=== PATIENT | male | born 1965 | race Caucasian/White ===

== ENCOUNTER 2018-11-08 06:00 | Day surgery (SDC) | payer MEDICAID ==
[2018-11-04 14:16] LABS: BASOPHILS # (AUTO) 0.1 X10'3 (0-0.2); EOSINOPHILS # (AUTO) 0.1 X10'3 (0-0.9); EOSINOPHILS % (AUTO) 0.8 % (0-6); LYMPHOCYTES # (AUTO) 2.1 X10'3 (1.1-4.8); LYMPHOCYTES % (AUTO) 25.4 % (21-51); MEAN CORPUSCULAR HEMOGLOBIN 30.9 PG (27.0-31.0); MEAN CORPUSCULAR HGB CONC 34.7 g/dL (33.0-36.5); MEAN PLATELET VOLUME 7.1 FL (7.4-10.4); MONOCYTES # (AUTO) 0.4 X10'3 (0-0.9); MONOCYTES % (AUTO) 4.4 % (2-12); NEUTROPHILS # (AUTO) 5.7 X10'3 (1.8-7.7); NEUTROPHILS % (AUTO) 68.4 % (42-75); PRE OP HEMATOCRIT 50.6 % (42.0-52.0); PRE OP HEMOGLOBIN 17.5 g/dL (14.0-17.9); PRE OP PLATELET COUNT 255 X10'3 (140-440); RED BLOOD COUNT 5.69 X10'6 (4.70-6.10); RED CELL DISTRIBUTION WIDTH 13.5 % (11.5-14.5)
[2018-11-04 14:34] LABS: ALBUMIN 3.6 G/DL (3.4-5.0); ALBUMIN/GLOBULIN RATIO 0.9 (1.1-1.5); ALKALINE PHOSPHATASE 87 IU/L (46-116); BLOOD UREA NITROGEN 12 MG/DL (7-18); BUN/CREATININE RATIO 13.6 (5.4-32.0); CALCIUM 9.1 MG/DL (8.5-10.1); CHLORIDE 107 MMOL/L (99-107); CREATININE 0.88 MG/DL (0.60-1.10); PRE OP ALT 34 U/L (30-65); PRE OP ANION GAP 9 (8-16); PRE OP AST 17 U/L (10-37); PRE OP BILIRUB, TOTAL 0.4 MG/DL (0.0-1.0); PRE OP GLUCOSE 96 MG/DL (70-104); PRE OP POTASSIUM 3.9 MMOL/L (3.4-5.1); PRE OP SODIUM 139 MMOL/L (135-145); TOTAL CARBON DIOXIDE 22.7 MMOL/L (24-32); TOTAL PROTEIN 7.6 G/DL (6.4-8.2); eGFR 90 ML/MIN
[~2018-11-08] VITALS: Ht 180.3 cm; Wt 87.1 kg
[~2018-11-08 06:00] MED LIST: AMIT-189 PO; CYCL-145 PO; ceFAZolin 2gm in dextrose, iso 100 ML IV ONE; famotidine 20mg tablet PO ONE; ringers solution, lacted 1,000 ML IV SCH
[2018-11-08 07:00] VITALS: BP 137/95
[2018-11-08] MEDS ORDERED: BUPIVAcaine/PF 2.5mg/ml (0.25%) 10ml vial ONE ×2 (07:43→08:14)
[2018-11-08] MEDS ORDERED: ondansetron/PF 4mg/2ml inj IV PRN (07:50)
[2018-11-08] MEDS ORDERED: meperidine/PF 25mg/ml syringe IV PRN ×3 (07:50)
[2018-11-08] MEDS ORDERED: ringers solution, lacted 1,000 ML IV SCH (07:50)
[2018-11-08] MEDS ORDERED: proCHLORperazine 10 MG/2 ml inj IV PRN (07:50)
[2018-11-08] MEDS ORDERED: LIDOcaine 0.5% (5mg/ml) 50ml vial ONE (08:12)
[2018-11-08] MEDS ORDERED: fentaNYL/PF 50MCG/1 ML 2ML syringe ONE (08:15)
[2018-11-08] MEDS ORDERED: midazolam 2 mg/2 ml injection ONE (08:15)
[2018-11-08 08:40] VITALS: BP 121/84
--- NOTE | 2018-11-08 08:40 | NUR ---
Received from OR via [facility], accompanied by Anesthesiologist DYLAN and report given by Anesthesiolgist. PT AWAKE AND ALERT, OXYGENATING WELL ON ROOM AIR. NO RESP DISTRESS NOTED. BULKY DSG TO LHAND/WRIST, CDI. NO PAIN, HAD KIRK BLOCK. L FINGERS TINGLY, ABLE TO WIGGLE THEM. CMS CHECK WNL. VSS.
[2018-11-08 08:51] VITALS: BP 127/91
[2018-11-08 09:00] VITALS: BP 138/88
--- NOTE | 2018-11-08 09:15 | NUR ---
NO PAIN, TOLERATING PO FLUIDS WELL. VSS. DC INSTRUCTIONS EXPLAINED TO PT AND HIS , NANCY VERBALIZED UNDERSTANDING. ICE BAG PROVIDED FOR PT, DCD IN STABLE CONDITION. TAKEN TO CAR VIA WC.
== END 2018-11-08 09:15 | disposition home or self-care (01) ==
LOC: PAS 06:00
PROVIDERS: ATTEND Orthopaedic Surgery Hand Surgery
DX: M67.432 Ganglion, left wrist (principal); F17.200 Nicotine dependence, unspecified, uncomplicated; G43.909 Migraine, unspecified, not intractable, without status migrainosus; Z88.6 Allergy status to analgesic agent; Z79.899 Other long term (current) drug therapy
CPT/HCPCS: 25111; 36415; 80053; 82948; 85025; 93005; A6222; A6449; J0690; J2001; J2250; J3010; J3490; J7120

== ENCOUNTER 2020-01-03 21:59 | Emergency (ER) | payer MEDICAID ==
[~2020-01-03] VITALS: Ht 180.3 cm; Wt 88.6 kg
[~2020-01-03 21:59] MED LIST changes: -ceFAZolin 2gm in dextrose, iso 100 ML IV ONE; -famotidine 20mg tablet PO ONE; -ringers solution, lacted 1,000 ML IV SCH
[2020-01-03] MEDS ORDERED: ketorolac trometh. 30mg/ml inj. IV ONE (22:25)
[2020-01-03] MEDS ORDERED: ondansetron/PF 4mg/2ml inj IV ONE (22:25)
[2020-01-03] MEDS ORDERED: fentaNYL/PF 50MCG/1 ML 2ML syringe IV ONE ×2 (23:00→23:55)
[2020-01-03 23:01] LABS: BASOPHILS # (AUTO) 0.1 X10'3 (0-0.2); BASOPHILS % (AUTO) 0.5 % (0-1); EOSINOPHILS # (AUTO) 0.1 X10'3 (0-0.9); EOSINOPHILS % (AUTO) 0.6 % (0-6); HEMATOCRIT 48.7 % (42.0-52.0); HEMOGLOBIN 16.5 g/dl (14.0-17.9); MEAN CORPUSCULAR HEMOGLOBIN 30.5 PG (27.0-31.0); MEAN CORPUSCULAR HGB CONC 33.9 g/dL (33.0-36.5); MEAN CORPUSCULAR VOLUME 89.9 FL (78-98); MEAN PLATELET VOLUME 7.7 FL (7.4-10.4); MONOCYTES # (AUTO) 0.7 X10'3 (0-0.9); MONOCYTES % (AUTO) 5.3 % (2-12); NEUTROPHILS # (AUTO) 10.6 X10'3 (1.8-7.7); NEUTROPHILS % (AUTO) 78.6 % (42-75); PLATELET COUNT 273 X10'3 (140-440); RED BLOOD COUNT 5.41 X10'6 (4.70-6.10); RED CELL DISTRIBUTION WIDTH 13.6 % (11.5-14.5); WHITE BLOOD COUNT 13.4 X10'3 (4.5-11.0)
[2020-01-03 23:15] LABS: ALANINE AMINOTRANSFERASE 54 U/L (12-78); ALKALINE PHOSPHATASE 93 IU/L (46-116); ANION GAP 11 (8-16); ASPARTATE AMINO TRANSFERASE 38 U/L (10-37); BILIRUBIN,TOTAL 0.5 MG/DL (0.1-1.0); BLOOD UREA NITROGEN 12 MG/DL (7-18); BUN/CREATININE RATIO 9.9 (5.4-32.0); CALCIUM 9.5 MG/DL (8.5-10.1); CHLORIDE 107 MMOL/L (99-107); CREATININE 1.21 MG/DL (0.60-1.10); GLUCOSE 142 MG/DL (70-104); LIPASE 236 U/L (73-393); POTASSIUM 3.1 MMOL/L (3.5-5.1); SODIUM 144 MMOL/L (135-145); TOTAL CARBON DIOXIDE 26.2 MMOL/L (24-32); TOTAL PROTEIN 7.9 G/DL (6.4-8.2); eGFR 62 ML/MIN
[2020-01-03 23:42] LABS: COLOR,URINE AMBER (Yellow); GLUCOSE, URINE NEGATIVE (Neg); KETONES,URINE TRACE mg/dl (Neg); LEUKOCYTE ESTERASE ,URINE NEGATIVE (Neg); NITRITES, URINE NEGATIVE (Neg); OCCULT BLOOD,URINE LARGE (Neg); PH,URINE 5.5 (4.8-8.0); PROTEIN,URINE TRACE mg/dl (Neg)
[2020-01-03 23:43] LABS: CLARITY,URINE SLIGHTLY CLOUDY (Clear); UA COLLECTION TYPE CLN CATCH MIDSTREAM
[2020-01-03] MEDS ORDERED: HYDROcodone/acetaminophen 5mg/325mg tablet PO ONE (23:55)
[2020-01-03] MEDS ORDERED: acetaminophen 325mg tablet PO ONE (23:55)
[2020-01-03 23:58] LABS: BACTERIA,URINE NONE SEEN /HPF (Neg); MUCUS STRANDS MODERATE /LPF (Neg); SQUAMOUS EPITHELIAL CELL,UR FEW /LPF (FEW); WBC,URINE 0-4 /HPF (0-4)
[2020-01-03 23:59] LABS: CAL OXALATE CRYSTALS 3+ /HPF (NEGATIVE)
[2020-01-04] MEDS ORDERED: HYDR-3965 PO (00:50)
[2020-01-04] MEDS ORDERED: ONDA8TAB6 PO (00:50)
[2020-01-04 01:05] VITALS: BP 122/88
== END 2020-01-04 01:00 | disposition home or self-care (01) ==
LOC: ER 22:00
DX: N20.0 Calculus of kidney (principal); R11.2 Nausea with vomiting, unspecified; Z88.5 Allergy status to narcotic agent; Z79.899 Other long term (current) drug therapy
CPT/HCPCS: 36415; 74176; 80053; 81001; 83690; 85025; 96374; 96375; 96376; 99284; J1885; J2405; J3010

== ENCOUNTER 2021-09-07 10:41 | Day surgery (SDC) | payer MEDICAID ==
[~2021-09-07] VITALS: Ht 180.3 cm; Wt 84.0 kg
[2021-09-07] VITALS (8 sets, daily range): BP systolic 134–154; BP diastolic 79–101
[~2021-09-07 10:41] MED LIST changes: +ONDA8TAB6 PO
[2021-09-07] MEDS ORDERED: Marjuana INH (11:13)
[2021-09-07] MEDS ORDERED: IBUP-1984 PO ×2 (11:13→16:35)
[2021-09-07] MEDS ORDERED: normal saline 1000ml 1,000 ML IV SCH (11:40)
== END 2021-09-07 13:35 | disposition home or self-care (01) ==
LOC: SSTAY O 10:41
PROVIDERS: ATTEND Radiology Diagnostic Radiology
DX: R22.0 Localized swelling, mass and lump, head (principal); G43.909 Migraine, unspecified, not intractable, without status migrainosus; Z88.5 Allergy status to narcotic agent; Z79.899 Other long term (current) drug therapy
CPT/HCPCS: 10005

== ENCOUNTER 2021-09-07 13:57 | Emergency (ER) | payer MEDICAID ==
[~2021-09-07] VITALS: Ht 180.3 cm; Wt 77.7 kg
[~2021-09-07 13:57] MED LIST changes: +IBUP-1984 PO; +Marjuana INH
[2021-09-07 14:06] VITALS: BP 144/103
[2021-09-07] MEDS ORDERED: IBUP-1984 PO (16:35)
== END 2021-09-07 17:06 | disposition home or self-care (01) ==
LOC: ER 13:58
DX: M25.511 Pain in right shoulder (principal); Z87.442 Personal history of urinary calculi; Z88.5 Allergy status to narcotic agent; Z79.899 Other long term (current) drug therapy
CPT/HCPCS: 73030; 99283

== ENCOUNTER 2024-07-27 13:22 | Emergency (ER) | payer BC, MEDICAID ==
[~2024-07-27] VITALS: Ht 180.3 cm; Wt 84.0 kg
[~2024-07-27 13:22] MED LIST changes: -AMIT-189 PO; +AMIT50TA15 PO; -ONDA8TAB6 PO
[2024-07-27 15:30] LABS: BASOPHILS # (AUTO) 0.1 X10'3 (0-0.2); BASOPHILS % (AUTO) 0.9 % (0-1); EOSINOPHILS # (AUTO) 0.2 X10'3 (0-0.9); HEMATOCRIT 50.9 % (42.0-52.0); HEMOGLOBIN 17.6 g/dl (14.0-17.9); LYMPHOCYTES # (AUTO) 2.7 X10'3 (1.1-4.8); LYMPHOCYTES % (AUTO) 34.5 % (21-51); MEAN CORPUSCULAR HEMOGLOBIN 31.6 PG (27.0-31.0); MEAN CORPUSCULAR HGB CONC 34.5 g/dL (33.0-36.5); MEAN CORPUSCULAR VOLUME 91.4 FL (78-98); MEAN PLATELET VOLUME 7.5 FL (7.4-10.4); MONOCYTES # (AUTO) 0.4 X10'3 (0-0.9); MONOCYTES % (AUTO) 5.4 % (2-12); NEUTROPHILS # (AUTO) 4.5 X10'3 (1.8-7.7); NEUTROPHILS % (AUTO) 56.2 % (42-75); PLATELET COUNT 194 X10'3 (140-440); RED BLOOD COUNT 5.57 X10'6 (4.70-6.10); RED CELL DISTRIBUTION WIDTH 13.3 % (11.5-14.5); WHITE BLOOD COUNT 7.9 X10'3 (4.5-11.0)
[2024-07-27 15:39] LABS: D-DIMER 0.75 MG/L FEU (0-0.50)
[2024-07-27 15:43] LABS: ALANINE AMINOTRANSFERASE 81 U/L (12-78); ALBUMIN 3.8 G/DL (3.4-5.0); ALBUMIN/GLOBULIN RATIO 0.8 (1.1-1.5); ALKALINE PHOSPHATASE 90 IU/L (46-116); ANION GAP 7 (8-16); ASPARTATE AMINO TRANSFERASE 54 U/L (10-37); BILIRUBIN,TOTAL 0.6 MG/DL (0.1-1.0); BLOOD UREA NITROGEN 15 MG/DL (7-18); BUN/CREATININE RATIO 18.3 (10.0-20.0); CALCIUM 8.5 MG/DL (8.5-10.1); CHLORIDE 106 MMOL/L (99-107); CREATININE 0.82 MG/DL (0.60-1.10); GLUCOSE 94 MG/DL (70-104); POTASSIUM 4.1 MMOL/L (3.5-5.1); SODIUM 140 MMOL/L (135-145); TOTAL CARBON DIOXIDE 26.7 MMOL/L (24-32); TOTAL PROTEIN 8.3 G/DL (6.4-8.2); eCRCL 101 ML/MIN; eGFR > 90 ML/MIN
[2024-07-27 15:49] LABS: PRO BRAIN NATRIURETIC PEPTIDE 32 PG/ML (0-125)
[2024-07-27] MEDS ORDERED: iohexol 350MG/ML 100ml bottle IV ONE (16:11)
[2024-07-27 18:11] VITALS: BP 113/92; PULSE 72; RESP 13; TEMP 98.1; O2SAT 97
[2024-07-27] MEDS ORDERED: ALBU18HF2 INH (18:15)
== END 2024-07-27 18:37 | disposition home or self-care (01) ==
LOC: ER 13:22
DX: R06.03 Acute respiratory distress (principal); J44.1 Chronic obstructive pulmonary disease with (acute) exacerbation; Z88.5 Allergy status to narcotic agent; Z87.891 Personal history of nicotine dependence
CPT/HCPCS: 36415; 71045; 71275; 80053; 83880; 84484; 85025; 85379; 93005; 99291; J7030; Q9967